=== PATIENT | male | born 1970 | race Caucasian/White ===

== ENCOUNTER 2018-06-21 14:41 | Emergency (ER) | payer OTHER ==
[~2018-06-21] VITALS: Ht 170.2 cm; Wt 83.9 kg
[2018-06-21] MEDS ORDERED: TRUVADA 100 MG1 EACH PO (14:55)
== END 2018-06-21 19:16 | disposition home or self-care (01) ==
LOC: ER 14:41 → EDBD 15:12 → ER 15:12
DX: K29.70 Gastritis, unspecified, without bleeding (principal)